=== PATIENT | female | born 2000 | race Caucasian/White ===

== ENCOUNTER → 2018-02-18 | Emergency (ER) | END | disposition home or self-care (01) ==

== ENCOUNTER 2018-09-12 08:18 | Day surgery (SDC) | payer BC ==
[2018-09-12] VITALS (15 sets, daily range): BP systolic 110–124; BP diastolic 23–76; PULSE 74–86; RESP 11–18; Ht 167.6 cm; Wt 68.7 kg
[~2018-09-12] VITALS: Ht 167.6 cm; Wt 68.7 kg
--- NOTE | 2018-09-12 07:38 | HPN ---
Date/Time of Note Date/Time of Note DATE: 09/12/18 TIME: 07:38 Interval H&P Admission Note Pt. seen H&P reviewed: No system changes MARCELO PAREDES MD Sep 12, 2018 07:38
[~2018-09-12 08:18] MED LIST: IBUP-1542 PO
[2018-09-12] MEDS ORDERED: FENTAnyl 50 MCG/ML VIAL ONE ×2 (09:07→14:24)
[2018-09-12] MEDS ORDERED: CEFAZOLIN 1 GM INJ ONE (09:07)
[2018-09-12] MEDS ORDERED: ROCURONIUM 50 MG INJ ONE (09:07)
[2018-09-12] MEDS ORDERED: NEOSTIGMINE 3 MG/3 ML SYRINGE ONE (09:07)
[2018-09-12] MEDS ORDERED: MIDAZOLAM 1 MG/ML 2 ML INJ ONE (09:07)
[2018-09-12] MEDS ORDERED: DEXAMETHASONE 4 MG/ML 5 ML INJ ONE (09:07)
[2018-09-12] MEDS ORDERED: PROPOFOL 20 ML ONE (09:07)
[2018-09-12] MEDS ORDERED: GLYCOPYRROLATE 0.4 MG INJ ONE (09:07)
[2018-09-12] MEDS ORDERED: ROPIVACAINE 0.5 % 30 ML VIAL ONE ×2 (09:07→10:05)
[2018-09-12] MEDS ORDERED: ONDANSETRON 4 MG INJ ONE ×2 (09:07→14:23)
--- NOTE | 2018-09-12 09:53 | PREAC ---
Date/Time of Note Date/Time of Note DATE: 09/12/18 TIME: 09:50 Anesthesia Eval and Record Evaluation Time Pre-Procedure Interview DATE: 09/12/18 TIME: 09:50 Age 18 Sex female NPO: 8 hrs Preoperative diagnosis L knee ACL tear Planned procedure L knee arthroscopy w/ revision ACL reconstruction w/ hamstring autograft, possible medial and lateral meniscal repair vs partial meniscectomy, chondroplasty Past Medical History Past Medical History: None Surgery & Anesthesia Issues No known issue Meds Anticoagulation: No Beta Rodney within 24 hr: No Reason Beta Rodney not given: Pt. not on B-Rodney Discontinued Scripts Ibuprofen* (Motrin*) 600 Mg Tab, 600 MG PO Q6H PRN for PAIN AND OR ELEVATED TEMP, #30 TAB Prov:ARIC MOSER MD 02/18/18 Meds reviewed: Yes Allergies Coded Allergies: penicillin V (Verified Allergy, Unknown, 09/12/18) sulfamethoxazole (Verified Allergy, Unknown, 09/12/18) Allergies Reviewed: Yes Labs/Studies Labs Reviewed: Reviewed by anesthesiologist test: Negative Pre-procedure Exam Last vitals Vital Signs Date Temp Pulse Resp B/P (MAP) Pulse Ox O2 O2 Flow FiO2 Time Delivery Rate 09/12/18 98.7 77 18 110/76 100 Room Air 09:20 (87) Airway: Adequate mouth opening, Adequate thyromental dist Mallampati: Mallampati II Teeth: Normal Lung: Normal Heart: Normal ASA Physical Status ASA physical status: 1 Emergency: None Planned Anesthetic General/MAC: ETT Nerve block: Other (L fascia iliaca block) Pre-operative Attestations Prior to commencing anesthesia and surgery, the patient was re-evaluated, there was verification of: *The patient's identity *The results of appropriate recent lab work and preoperative vital signs *The above evaluation not changing prior to induction *Anesthetic plan, risk benefits, alternative and complications discussed with patient/family; questions answered; patient/family understands, accepts and wishes to proceed. LAZARO MIDDLETON Sep 12, 2018 09:53
[2018-09-12] MEDS ORDERED: POLYMYXIN/BACITRACIN 1L IRRIG ONE (10:05)
[2018-09-12] MEDS ORDERED: NEOMYC/POLYMYX/BACIT 30 GM OINT ONE (10:05)
[2018-09-12] MEDS ORDERED: SUGAMMADEX SODIUM 200 MG/2 ML VIAL IV ONE (13:53)
[2018-09-12] MEDS ORDERED: KETOROLAC 30 MG INJ IV SCH (14:00)
[2018-09-12] MEDS ORDERED: morphine 2 MG INJ IV PRN (14:00)
[2018-09-12] MEDS ORDERED: MEPERIDINE 25 MG INJ ONE (14:24)
--- NOTE | 2018-09-12 14:34 | PAC ---
Date/Time of Note Date/Time of Note DATE: 09/12/18 TIME: 14:34 Post-Anesthesia Notes Post-Anesthesia Note Last documented vital signs Vital Signs Date Temp Pulse Resp B/P (MAP) Pulse Ox O2 O2 Flow FiO2 Time Delivery Rate 09/12/18 97.5 14:18 09/12/18 77 18 110/76 100 Room Air 09:20 (87) Activity: WNL Respiratory function: WNL Cardiovascular function: WNL Mental status: Baseline Pain reasonably controlled: Yes Hydration appropriate: Yes Nausea/Vomiting absent: Yes Antoine Pierre M.D. Sep 12, 2018 14:34
[2018-09-12] MEDS: FENTAnyl 50 MCG/ML VIAL IV PRN ×2 (14:45→15:03)
[2018-09-12] MEDS ORDERED: HYDROmorphONE 1 MG/5 ML IV SYRINGE IV PRN ×3 (15:00)
[2018-09-12] MEDS ORDERED: EPHEDrine SULFATE 50 MG/5 ML SYG IV PRN (15:00)
[2018-09-12] MEDS ORDERED: ONDANSETRON 4 MG INJ IV PRN (15:00)
[2018-09-12] MEDS ORDERED: OXYCODONE/ACETAMINOPHEN (5/325) TAB PO PRN ×2 (15:00)
[2018-09-12] MEDS ORDERED: hydrALAzine 20 MG INJ IV PRN (15:00)
[2018-09-12] MEDS ORDERED: TRIMETHOBENZAMIDE 100 MG/ML VIAL IM PRN (15:00)
[2018-09-12] MEDS ORDERED: LABETALOL HCL 20MG INJ IV PRN (15:00)
[2018-09-12] MEDS ORDERED: DIPHENHYDRAMINE 50 MG INJ IV PRN (15:00)
[2018-09-12] MEDS ORDERED: MEPERIDINE 25 MG INJ IV PRN (15:00)
[2018-09-12] MEDS ORDERED: ALBUTEROL 0.083% (NEB) 2.5 MG/3 ML AMP HHN PRN (15:00)
[2018-09-12] MEDS ORDERED: FENTAnyl 50 MCG/ML VIAL IV PRN ×2 (15:00)
[2018-09-12] MEDS ORDERED: MIDAZOLAM 1 MG/ML 2 ML INJ IV PRN (15:00)
[2018-09-12] MEDS ORDERED: IPRATROPIUM (NEB) 0.5 MG/2.5 ML AMP HHN PRN (15:00)
[2018-09-12] MEDS ORDERED: KETOROLAC 30 MG INJ ONE (15:08)
--- NOTE | 2018-09-12 23:13 | OPR ---
Date/Time of Note Date/Time of Note DATE: 09/12/18 TIME: 23:03 Operative Report Procedure Date: Sep 12, 2018 Preoperative Diagnosis Left knee ACL rupture Left knee medial and lateral meniscal tear Left knee hypertrophic scar Postoperative Diagnosis Left knee ACL re-rupture Left knee posterior medial meniscal tear Left knee mid body lateral meniscal tear Left knee lateral compartment chondromalacia left knee hypertrophic scar measuring approximately 5 cm Left knee painful hardware Operation/Procedure Performed Left knee arthroscopy with revision anterior cruciate ligament reconstruction with hamstring autograft with application of platelet rich plasma left knee arthroscopy with chondroplasty Left knee arthroscopy with medial meniscal repair Left knee arthroscopy with lateral meniscectomy Left knee hardware removal Left knee revision of hypertrophic scar measuring approximately 5 cm Surgeon Marcelo Paredes MD [employer] Leandro Crespo MD Anesthesia Type: general, other (Fascia iliacus) Anesthesiologist: Antoine Pierre M.D. 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 Patient had had a previous left knee BTB autograft ACL reconstruction approximately 18 months ago in [place]. Given her recent rerupture patient was indicated for surgical management. She complains of constant instability with her knee giving out. Risk Note: Patient was explained the risks and benefits of surgery and the patient's pilot station language including not limited to infection, bleeding, injury to blood vessels, nerves, ligaments or tendons. Risks of anesthesia, deep vein thrombosis and need for reduce future surgery. Patient acknowledged these risk by signing the surgical consent form. Procedure Description PROCEDURE: The patient was brought to the operating room and placed supine on the operating room table. General anesthesia was induced and a fascia iliacus block was placed. The left lower extremity was examined under anesthesia. Range of motion was 0 degrees of extension to 135 degrees of flexion. There was no varus or valgus or posterolateral instability. She had no instability to varus or valgus stress at 0 or 30 degrees. He had a 2+ Charis and drawer with a positive pivot shift The left lower extremity was then prepped and draped in the usual fashion. A tourniquet was placed proximally on the thigh over a bias stockinette. A standard anterolateral parapatellar stab wound was created. The knee joint was entered with a blunt-tipped obturator, followed by the 30-degree video ar throscope. An anteromedial portal was established under arthroscopic control. A routine arthroscopic survey was performed. The suprapatellar pouch was unremarkable. The undersurface of the patella was well-preserved. The patella appeared to track centrally within the trochlear groove. Trochlea no chondromalacia. The medial and lateral gutters were inspected and there was no loose body seen. There was no hypertrophied plica. The popliteal hiatus was entered and was unremarkable. The lateral compartment was entered. The lateral femoral condyle exhibited grade 2 chondromalacia over the lateral femoral condyle and the lateral tibial plateau showed no chondromalacia. There was no chondromalacia adjacent to the notch. There was no chondromalacia along the central aspect of the weight bearing lateral tibial plateau. The lateral meniscus was probed and found to be stable and firm on probing The intercondylar notch was visualized. The anterior cruciate ligament was torn from its femoral origin. There was an empty lateral wall. Posteromedially there was no loose body seen. The posterior cruciate ligament was visualized a nd appeared intact. The medial compartment was entered. The articular surfaces of the medial femoral condyle and medial tibial plateau were visualized. There was minimal chondromalacia noted on the medial femoral condyle, and chondromalacia noted on the medial tibial plateau. The medial meniscus was torn at the mid- zone/posterior horn junction at a red-red zone in a horizontal fashion. It was then rasped and then repaired with 2 Mitek Meniscal Repair devices in a vertical mattress fashion. The meniscus was reprobed and found to be stable. Attention was then turned to the lateral compartment where a mid body radial tear was identified and debrided with both basket biter and a shaver to a firm and stable rim. The meniscus was reprobed and found to be stable. Attention was turned to reconstruction of the anterior cruciate ligament. Following exsanguination with an Esmarch bandage the tourniquet was inflated to 250 mm of mercury. Using a motorized shaver a limited notchplasty was performed, exposing the lateral wall and roof of the notch, identifying the [id number] position. The stump of the anterior cruciate ligament was debrided. There was a painful proximal tibial screw and washer that was identified and removed without any complication. A Vector guide was placed intra-articularly between the tibial spines in line with the anterior horn of the lateral meniscus. A Umm wire was then inserted into the knee through a 2 cm incision made over the proximal medial tibia for the hamstring harvest. The incision was deepened through the subcutaneous tissue with subperiosteal dissection achieved. Bleeding points were coagulated with the Bovie electrocautery. The Semitendinosis and gracilis were harvested and taken to the back table, accommodating a 8 mm graft on the femoral side and 8 mm graft on the tibial side. Tibial drilling was then carried out first with a 6 mm followed by a 8 mm cylindrical reamer with the guide set at 55 degrees. Via an accessory medial portal, the Beath pin was drilled out the femoral cortex and skin with the knee in hyperflexion. The femoral tunnel was then created, with a spade tip guidewire, Depth-gauging confirmed a tunnel length of 30 mm. Then reaming proceeded, first with a 6 mm then an 8 mm drill to a depth of 25mm. A adjustable rigid loop Mitek button was selected. The graft was inserted intra-articularly and the Mitek button was deployed. The graft was cycled for 20 cycles with 25 pounds of force to pre-load the graft. Tibial fixation was carried out using a 6-8 BioIntra-Fix in 10 degrees of flexion with a posterior drawer. At the completion of surgery the patient had a firm stable Charis. There was a negative pivot shift. The patient had a 0 firm Charis and a negative pivot shift. There was no evidence for any roof or lateral wall impingement. The knee was irrigated with two liters of lactated Ringer's solution. Excess fluid was drained. PRP was then placed by spinal needle into the ACL graft under visualization. There was a hypertrophic scar over the distal lateral femur that was identified and excised measuring approximately 5 cm. It was then irrigated thoroughly and then closed in deep layers with 2-0 Vicryl followed by 3-0 Monocryl and 4-0 Monocryl in a running fashion. The tibial wounds were then copiously irrigated with bacitracin solution and closed in layers with #0, #2-0 and #3-0 Vicryl. The skin was reapproximated with #4-0 Monocryl. A dry sterile dressing was applied, followed by a bulky bandage and Abe wrap with a cold therapy unit placed over the bulky bandage. A postoperative TROM brace was applied locked in full extension. The patient was awakened in the Operating Room and transported to the Recovery Room in satisfactory condition. The patient appeared to tolerate the procedure well. At the completion of surgery the patient had soft compartments, palpable pulses, and brisk capillary refill. There were no complications noted. SECURITY REP SURGEON: During the operation, the services of a orthopedic surgeon surgical attendant was medically indicated and necessary to provide exposure of the operative site for the surgical procedure and to maintain the limb in a proper position to carry out the operation safely and efficiently. Without the qualified front office medical assistant being present, it would have extended the operative procedure and made the procedure technically more difficult to perform. Modifier 22 note: Given the revision nature of this case made the case essentially more complex required a great deal of preparation and time in the case to obtain excellent fixation. Given the complexity of the case and the time and the length required to do a revision ACL reconstruction this case should be awarded by a modifier 22. MARCELO PAREDES MD Sep 12, 2018 23:13
== END 2018-09-12 17:20 | disposition home or self-care (01) ==
LOC: SDS 08:18
PROVIDERS: ATTEND Orthopaedic Surgery
DX: S83.512D Sprain of anterior cruciate ligament of left knee, subsequent encounter (principal); S83.282D Other tear of lateral meniscus, current injury, left knee, subsequent encounter; S83.242D Other tear of medial meniscus, current injury, left knee, subsequent encounter; X58.XXXD Exposure to other specified factors, subsequent encounter; M94.262 Chondromalacia, left knee
CPT/HCPCS: 29880; 29888; 73562; 82306; J0690; J1100; J1885; J2175; J2250; J2405; J2710; J2795; J3010

== ENCOUNTER 2018-09-23 18:29 | Emergency (ER) | payer BC ==
[~2018-09-23] VITALS: Ht 167.6 cm; Wt 68.3 kg
[2018-09-23 18:39] VITALS: Ht 167.6 cm; Wt 68.3 kg
--- NOTE | 2018-09-23 20:11 | ERD ---
ER Documentation Chief Complaint Chief Complaint left foot cold, purple, numb in am, slightly better now, 1 wk postop knee HPI This is a 18-year-old female 1 week postop from a left ACL repair who is presenting with concerns of a postoperative complication. The patient reports losing her balance yesterday and needing to bear weight with her left leg. She endorses a minor trauma to the leg, but she did not have any pain after the incident. Last night and into this morning, she noticed some bruising to the foot, which was very concerning to her. The patient's left leg is also slightly swollen. The patient's leg has been swollen since the surgery, but it may be more swollen today, which is also very concerning to the patient. The patient reports that her foot also feels cold, but she admits that both feet feel this way. The patient is able to move the feet without issue. Her sensation and strength are intact. The patient did endorse pain to the left lower extremity earlier today, but this has resolved. The patient does not endorse any pain currently. The patient is very anxious in the room. She is concerned that she could have caused a problem to her surgery. She is also concerned about a blood clot. She is hyperventilating and endorses tingling to her hands and feet. ROS All systems reviewed and are negative except as per history of present illness. Allergies Allergies: Coded Allergies: Penicillins (Verified Allergy, Unknown, 09/23/18) Sulfa (Sulfonamide Antibiotics) (Verified Allergy, Unknown, 09/23/18) PMhx/Soc History of Surgery: Yes (left thumb sx, l knee acl, lt acl again) Anesthesia Reaction: No Hx Neurological Disorder: No Hx Respiratory Disorders: No Hx Cardiac Disorders: No Hx Psychiatric Problems: No Hx Miscellaneous Medical Probl: No Hx Alcohol Use: No Hx Substance Use: No Hx Tobacco Use: No Smoking Status: Never smoker FmHx Family History: No diabetes Physical Exam Vitals Vital Signs Date Temp Pulse Resp B/P (MAP) Pulse Ox O2 O2 Flow FiO2 Time Delivery Rate 09/23/18 86 18 121/68 100 Room Air 20:18 (85) 09/23/18 98.4 111 20 122/89 100 18:39 (100) Physical Exam Const: No apparent distress, well-developed, well-nourished Head: Normocephalic, Atraumatic Eyes: Normal Conjunctiva. Extraocular movements grossly intact. ENT: Normal External Ears, Nose and Mouth. Neck: Full range of motion. No meningismus. Resp: Clear to auscultation bilaterally, No wheezes, rales or rhonchi Cardio: Regular rate and rhythm. No murmurs, rubs or gallops Abd: Soft, non tender, non distended. Normal bowel sounds Skin: No petechiae or rashes Back: No midline tenderness. No CVA tenderness Ext: No cyanosis. Left knee immobilizer in place. Left lower extremity non pitting edema. Steri-Strips over the left knee. Pulses intact bilaterally. No cyanosis or pallor bilaterally. Bilateral feet are cool to touch. Normal capillary refill. Neur: Awake and alert, oriented 4. Cranial nerves intact. No facial droop. Normal strength, sensation and coordination. Psych: Normal Mood and Affect Procedures/MDM MDM The patient's presentation warrants further investigation. Previous medical records, if available, were reviewed. IMAGING Imaging and Radiology interpretation reviewed. Left lower extremity Doppler FINDINGS: No soft tissue abnormalities are identified. Common femoral vein: Patent. Femoral vein: Patent. Popliteal vein: Patent. Calf veins: Patent. IMPRESSION: No evidence of a deep vein thrombosis within the left lower extremity. Electronically viewed and signed by Abel Lenz MD, MD on 09/23/2018 18:55 TREATMENT/DISPOSITION The patient presents the patient presents for pain and swelling of the left lo wer extremity. She is 1 week out from a left ACL repair. The patient does endorse a minor injury yesterday, but she was wearing the knee immobilizer and does not endorse any twisting of the knee. I have decreased suspicion for an acute postoperative complication related to the trauma. The patient's left leg is swollen, but it has been this way since the surgery. We did obtain a Doppler of the left lower extremity which did not reveal any acute soft tissue abnormality. There is no evidence of a DVT. There is no evidence of cellulitis or abscess or soft tissue infection. The patient was very anxious in the room. She was hyperventilating with paresthesias. After the patient was given the new dose of her negative DVT study, the patient endorsed significant relief and improvement of symptoms. The patient's tachycardia also resolved. I put in all your orders for the I do not suspect a cardiopulmonary etiology of symptoms. DISCHARGE Upon reevaluation of the patient, symptoms have improved. No emergent diagnoses were identified. At this time, I feel that the patient stable for discharge. The patient was instructed to follow-up with a primary care physician in 1-3 days. The patient will be given strict precautions with which to return to the emergency department. Prescriptions: None The patient's blood pressure was elevated at greater than 120/80 while in the emergency department. The patient was otherwise stable with no evidence of hypertensive urgency or emergency. The patient does not require admission for blood pressure control. I have discussed with the patient the risks of hypertension. I have instructed the patient to return to the ER for any new or worsening symptoms including chest pain, shortness of breath, headache, blurred vision, confusion, nausea, vomiting or LOC. I have advised the patient to follow up with the primary care physician for outpatient monitoring and treatment for hypertension in 1-3 days. Disclaimer: Inadvertent spelling and grammatical errors are likely due to EHR/dictation software use and do not reflect on the overall quality of patient care. Note that the electronic time recorded on this note does not necessarily reflect the actual time of the patient encounter. Departure Diagnosis: Primary Impression: Edema of left lower extremity Additional Impressions: Pain of left leg History of repair of anterior cruciate ligament of left knee Anxiousness Condition: Stable PA HOLT MD Sep 23, 2018 20:11
[2018-09-23 20:18] VITALS: BP 121/68; PULSE 86; RESP 18
== END 2018-09-23 20:19 | disposition home or self-care (01) ==
LOC: E/R 18:29
DX: R22.42 Localized swelling, mass and lump, left lower limb (principal); M79.605 Pain in left leg; F41.9 Anxiety disorder, unspecified; Z87.828 Personal history of other (healed) physical injury and trauma
CPT/HCPCS: 93971